=== PATIENT | male | born 1965 | race Caucasian/White ===

== ENCOUNTER 2017-12-15 03:53 | Inpatient (IN) | payer OTHER, MEDICARE ==
[~2017-12-15] VITALS: Ht 177.8 cm; Wt 127.0 kg
[~2017-12-15 03:53] MED LIST: ABILIFY10 M1 PO; AMLODIPINE BESY10 M1 PO; ATENOLOL25 M1 PO; BASAGLAR K100 UNIT/1; CRESTOR20 M2 PO; KLONOPIN0.5 M1 PO; LAMOTRIGINE200 M2 PO; LISINOPRIL20 M1 PO; WELLBUTRIN SR150 M1 PO
--- NOTE | 2017-12-15 08:22 | Admission Core Measures ---
Acute Coronary Syndrome (CM) ACS Core Measures Acute Coronary Syndrome Diagnosis No Congestive Heart Failure (NEW) CHF Core Measures Congestive Heart Failure Diagnosis No Cerebrovascular Accident CVA Core Measures CVA/TIA Diagnosis No Venous Thromboembolism VTE Core Zachary (View Protocol) VTE Risk Factors Surgery No Mechanical VTE Prophylaxis d/t N/A MechProphylax Ordered No VTE Pharm Prophylaxis d/t NA PharmProphylax ordered Problem List As ranked by this Provider includes Assessment & Plan 1. Unilateral primary osteoarthritis, right hip HOME MEDS Home Med List Amlodipine Besylate 10 MG TABLET 1 TAB PO DAILY HTN (Reported) Aripiprazole (Abilify) 10 MG TABLET 1 TAB PO DAILY DEPRESSION (Reported) Atenolol 25 MG TABLET 1 TAB PO DAILY HTN (Reported) Bupropion HCl (Wellbutrin Sr) 150 MG TABLET.ER 1 TAB PO BID DEPRESSION ( Reported) Clonazepam (Klonopin) 0.5 MG TABLET 1 TAB PO 4 TIMES/DAY ANXIETY (Reported) Insulin Glargine,Hum.rec.anlog (Basaglar Kwikpen U-100) 100 UNIT/ML (3 ML) INSULN.PEN 7 U BID DIABETES (Reported) Lamotrigine 200 MG TABLET 1 TAB PO TID UNKNOWN (Reported) Lisinopril 20 MG TABLET 1 TAB PO DAILY HTN (Reported) Rosuvastatin Calcium (Crestor) 20 MG TABLET 1 TAB PO DAILY CHOLESTEROL ( Reported)
--- NOTE | 2017-12-15 08:31 | Patient Discharge Instructions ---
Discharge Instructions General Discharge Information You were seen/treated for: Right hip pain You had these procedures: Right total hip arthroplasty Watch for these problems: Fever over 100.4 Drainage from wound Redness and swelling around wound Unable to bear weight on right lower extremity Chest pain or shortness of breath Call Surgeon to remove: Other Do not soak the wound: Yes No bath, but you may shower: Yes Other wound care: Daily dry dressing change Special Instructions: Okay to shower in 48hr Diet Continue normal diet: Yes Activity Activity Limited to: Weight bear as tolerated (with rolling walker) Acute Coronary Syndrome Inclusion Criteria At DC or during hospital stay patient has or had the following: ACS DIAGNOSIS No Discharge Core Measures Meds if any: Prescribed or Continued at Discharge Meds if any: NOT Prescribed or Continued at Discharge Congestive Heart Failure Inclusion Criteria At DC or during hospital stay patient has or had the following: CHF DIAGNOSIS No Discharge Core Measures Meds if any: Prescribed or Continued at Discharge Meds if any: NOT Prescribed or Continued at Discharge Cerebrovascular accident Inclusion Criteria At DC or during hospital stay patient has or had the following: CVA/TIA Diagnosis No Discharge Core Measures Meds if any: Prescribed or Continued at Discharge Meds if any: NOT Prescribed or Continued at Discharge Venous thromboembolism Inclusion Criteria VTE Diagnosis No VTE Type NONE VTE Confirmed by (Test) NONE Discharge Core Measures - Per Current guidelines, there needs to be overlap - treatment for the first 5 days of Warfarin therapy. - If discharged on Warfarin prior to 5 days of - overlap therapy, the patient will need to be - assessed for post discharge needs including - *Post discharge parental anticoagulation - *Warfarin and/or parental anticoagulation education - *Follow up date to check INR post discharge At least 5 days overlap therapy as Inpatient No Meds if any: Prescribed or Continued at Discharge Note: Overlap Therapy is Warfarin and Anticoagulant Meds if any: NOT Prescribed or Continued at Discharge
--- NOTE | 2017-12-15 08:33 | Surg Short-stay <48hrs Dis Sum ---
Visit Information Visit Dates Admission Date: 12/15/17 Discharge Date: 12/15/2017 Surgical Short Stay DC Summary Admission Diagnosis: Right hip osteoarthritis Final Diagnosis: Same Procedure(s): Right total hip arthroplasty Summary/Significant Findings: Patient tolerated the procedure well. Postoperatively he was tolerating regular diet, voiding spontaneously, pain was well managed, ambulating using a rolling walker with physical therapy and was cleared for discharge to home with health services. Patient was given instructions to follow-up with Dr. hWite in 6 weeks and call sooner with any questions or concerns Condition at Discharge: Good Discharge Disposition: home health services Discharge instructions provided to patient/family: Yes Post discharge follow-up plan: Follow-up with Dr. White in 6 weeks, call sooner with any questions or concerns
[2017-12-15] MEDS ORDERED: MIRALAX17 G1 PO (10:50)
[2017-12-15] MEDS ORDERED: MS CONTIN15 M3 PO (10:50)
[2017-12-15] MEDS ORDERED: COLACE100 M1 PO (10:50)
[2017-12-15] MEDS ORDERED: INDOMETHACIN25 M1 PO (10:50)
[2017-12-15] MEDS ORDERED: DILAUDID2 M1 PO (10:50)
[2017-12-15] MEDS ORDERED: ASPIRIN EC81 M1 PO (10:50)
--- NOTE | 2017-12-15 10:55 | PN- Orthopedic ---
Subjective Subjective: POC Pt recovering well in PACU, minimal pain/ache in right knee but no hip pain. Denies nausea, CP/SOB. Has not ambulated yet. Pt would like to home home otday if possible Objective Vital Signs and I&Os VSS afebrile Physical Exam: gen- NAD resp- clear cardiac- RRR abd- soft, NT ext- right thigh is soft, dressing clean and dry, distal sensory and motor function intact, 2+ DP pulse. no calf tenderness Current Medications: Current Medications Sig/Belkis Start time Last Medication Dose Route Stop Time Status Admin Acetaminophen 0 .STK-MED ONE 12/15 0615 DC PO Acetaminophen 975 MG ONCE 12/15 0000 NR PO 12/15 235 Amlodipine Besylate 10 MG DAILY 12/15 0900 AC PO Aripiprazole 10 MG DAILY 12/15 09 AC PO Atenolol 25 MG DAILY 12/15 0900 AC PO Atorvastatin Calcium 80 MG 1700 12/15 1700 AC PO Bupropion HCl 150 MG BID 12/15 0900 AC PO Cefazolin Sodium 3,000 MG ONCE 12/15 0000 NR IV 12/15 2358 Clonazepam 0.5 MG 4 TIMES/DAY 12/15 0900 AC PO 12/22 0859 Insulin Human Regular 0 TIDAC/HS 12/15 1200 AC SC Lamotrigine 200 MG TID 12/15 0900 UNV PO Lisinopril 20 MG DAILY 12/15 0900 AC PO Midazolam HCl 0 .STK-MED ONE 12/15 0708 DC .ROUTE Oxycodone HCl 0 .STK-MED ONE 12/15 0714 DC PO Oxycodone HCl 10 MG ONCE 12/15 0000 NR PO 12/15 235 Tranexamic Acid 0 .STK-MED ONE 12/15 0708 DC IV Assessment/Plan Assessment/Plan 52yo M with hx of htn and depression now SP R CADEN POD0, stable, recovering in PACU pain management PT- WBAT with rolling walker reg diet IVF regular home meds dvt ppx- alps and asa dc planning- possible home today pending clearence by PT Core Measures Venous Thromboembolism VTE Risk Factors Surgery No Mechanical VTE Prophylaxis d/t N/A MechProphylax Ordered No VTE Pharm Prophylaxis d/t NA PharmProphylax ordered
[2017-12-15 11:00] VITALS: BP 160/90
--- NOTE | 2017-12-15 11:10 | RADIOLOGY REPORT ---
EXAMINATION: XR HIP, RIGHT CLINICAL INFORMATION: Right total hip replacement. COMPARISON: None TECHNIQUE: AP and cross table lateral views of the right hip FINDINGS: There is a right total hip arthroplasty noted with the components in the usual position. No periprosthetic fracture or suspicious area of lucency. Gas\E\air in the soft tissues consistent with immediate postoperative state. IMPRESSION: Right total hip arthroplasty without complication by x-ray.
[2017-12-15 14:00] VITALS: BP 154/86
--- NOTE | 2017-12-15 15:36 | Operative Report ---
Operative/Inv Procedure Report Surgery Date: 12/15/17 Name of Procedure: Right total hip replacement Pre-Operative Diagnosis: Primary right hip DJD Post-Operative Diagnosis: Same Estimated Blood Loss: 300 Surgeon/Lead Level Designer: Shauna DANIELLE,Mu Bob Anesthesia: block Operative/Procedure Note Note: Description of Procedure: The patient was taken to the operating room and positively identified. After induction of spinal anesthesia and administration of appropriate pre-operative antibiotics, the patient was positioned supine on the operating room table and all bony prominences were well padded. After performing a surgical timeout, the right lower extremity was prepped and draped in the usual sterile fashion. A direct anterior approach was made to the right hip. The incision was carried sharply through superficial soft tissues to the level of the fascia. Meticulous hemostasis was maintained with Bovie electocautery. The fascia over the tensor fascia panfilo muscle was opened sharply and the interval between the TFL and the sartorius was entered bluntly taking care to stay lateral to the lateral femoral cutaneous nerve. Retractors were placed around the femoral neck and the pericapsular fat was identified. The ascending branches of the lateral femoral circumflex vessels were identified and carefully coagulated. The pericapsular fat and anterior capsule were then resected. A napkin ring osteotomy was performed and the femoral head was removed without difficulty. Attention was then turned to the acetabulum. After appropriate placement of retractors, the acetabulum was exposed. Soft tissue was cleaned from the acetabular margin and notch. Overhanging osteophytes were removed and the teardrop was exposed. The acetabulum was then sequentially reamed to accept a 64 mm Ana Maria Trident Tritanium hemispherical shell. This was impacted into place in the appropriate position and multiple screws were used for supplemental fixation. It was then fit with a 36 mm Trident X3 zero degree polyethylene insert. Attention was then turned to the femur. After performing the appropriate ligament releases, the proximal femur was exposed. It was then sequentially broached to accept a size 9 Ana Maria secure fit advanced 127 neck angle stem. This was trialed for leg length and stability. The trial component was removed and the final component was impacted into place. The trunnion was carefully cleaned and fit with a 36 mm, +0 Biolox delta ceramic femoral head. The hip was reduced and put through a full range of motion and found to be stable. The articular space was then irrigated with sterile saline. The periarticular soft tissues were infilitrated with Marcaine. The fascial layer was closed with interrupted #1 vicryl suture and the skin was re-approximated with interrupted 2 -0 vicryl. The skin was closed with a running 3-0 V-Lock suture. Steri-strips and a sterile dressing were applied. The patient was awakened and taken to the recovery room in satisfactory condition.
[2017-12-15 16:00] VITALS: BP 146/84
== END 2017-12-15 16:52 | disposition home health service (06) | DRG 470 ==
LOC: EDBD 03:53 → SDA 03:53 → ENRESERV 10:23 → ENTRNSPT 10:45 → EDTRNSPT 10:54 → EDTRNSPTSTS 10:54 → 2NB 11:05 → CMPTRNSPT 11:05 → ENTRNSPT 16:19 → EDTRNSPTSTS 16:39 → EDTRNSPT 16:39 → 2NB 16:52 → CMPTRNSPT 17:02
PROC: 0SR904A Replacement of Right Hip Joint with Ceramic on Polyethylene Synthetic Substitute, Uncemented, Open Approach (ICD-10-PCS; principal; 2017-12-15)
DX: M16.11 Unilateral primary osteoarthritis, right hip (principal); F41.9 Anxiety disorder, unspecified; I10 Essential (primary) hypertension; E78.5 Hyperlipidemia, unspecified; F32.9 Major depressive disorder, single episode, unspecified
CPT/HCPCS: 2NBSP; 73502-RT; 97116-GO; 97161-GP; 97530-GO; J0401; J0690; J0735; J3490; J7042